=== PATIENT | female | born 1990 | race Caucasian/White ===

== ENCOUNTER 2018-05-15 17:07 | Outpatient (CLI) | payer OTHER | END 2018-05-15 18:28 | disposition home or self-care (01) | LOC: C.LD 17:07 → C.OPB 17:07 | PROVIDERS: ATTEND Obstetrics & Gynecology | DX: O26.899 Other specified pregnancy related conditions, unspecified trimester (principal); N89.8 Other specified noninflammatory disorders of vagina; Z3A.00 Weeks of gestation of pregnancy not specified ==

== ENCOUNTER 2018-05-29 17:11 | Outpatient (CLI) | payer OTHER ==
[~2018-05-29] VITALS: Ht 167.6 cm; Wt 97.1 kg
[2018-05-29] MEDS ORDERED: PRENTAB26 PO (18:27)
[2018-05-29 18:29] VITALS: Ht 167.6 cm; Wt 97.1 kg
== END 2018-05-29 18:17 | disposition home or self-care (01) ==
LOC: C.OPB 17:11 → C.LD 17:11 → C.OPB 18:17
PROVIDERS: ATTEND Obstetrics & Gynecology
DX: O62.9 Abnormality of forces of labor, unspecified (principal); Z3A.38 38 weeks gestation of pregnancy